=== PATIENT | male | born 2000 | race Caucasian/White ===

== ENCOUNTER 2022-10-14 16:22 | Emergency (ER) | payer OTHER, SELFPAY ==
[2022-10-14 16:25] VITALS: BP 96/61; PULSE 75; RESP 16; TEMP 37.3; O2SAT 98; BMI 19.1
--- NOTE | 2022-10-14 16:43 | ED_ITS ---
HPI - Animal Bite General Chief Complaint: Animal Bite Stated Complaint: bit by cat Time Seen by Provider: 10/14/22 16:24 History of Present Illness HPI narrative: This 22-year-old male was visiting the country of [place] and was bit by a cat 2 and half weeks ago. He states that it was a barn CT and the vaccination status is unknown. He was bit in the finger and was not sure that he completely had puncture through the whole layer of skin. He did take an antibiotic for another reason afterwards and states that he does not have any residual affects of the cat bite on his hand. 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 He states that he feels normal in is otherwise in good health. Related Data Home Medications Medication Instructions Recorded Confirmed desvenlafaxine 50 mg 50 mg PO DAILY 10/14/22 10/14/22 tablet,extended release 24 hr doxycycline 10/14/22 Allergies Allergy/AdvReac Type Severity Reaction Status Date / Time No Known Drug Allergies Allergy Verified 10/14/22 16:30 Review of Systems Status of ROS: Reports: 10 or more systems reviewed and unremarkable except as noted in History and below Narrative: Constitutional: No fevers, no weight gain or loss. Eyes: No discharge. No vision changes. HENT: No congestion, no sore throat, no ear pain. Cardiovascular: No chest pain, no palpitations. Respiratory: No shortness of breath, no wheezes, no cough. Gastrointestinal: No abdominal pain, no vomiting, no diarrhea. Genitourinary: No dysuria, no hematuria. Musculoskeletal: Normal range of motion. Skin: No rashes, no pruritis. Neurological: No dizziness, weakness, sensory change, speech change. Endo/Heme/Allergies: No bruising or bleeding. No polydipsia. Pysch: no suicidality, no anxiety, no insomnia. All other systems reviewed and are negative. PFSH PFSH Social History Smoking Status: Never smoker How often do you have a drink containing alcohol: 2-4 times a month AUDIT-C Alcohol total score: 2 Non-prescribed substance use: denies use Exam Narrative: Exam Narrative: Constitutional: Well-developed, well-nourished, no acute distress. HEENT: Normocephalic, atraumatic. Neck: Normal range of motion. Nontender. Supple. Heart: Regular. No murmurs. Normal rate. Intact distal pulses. Lungs: Clear to auscultation. No chest discomfort. No wheezes, rhonchi, or rales. Abdomen: Normal bowel sounds. Nontender. No rebound tenderness. Genitalia: Deferred. Back: No midline tenderness. Normal range of motion. Extremities: Normal range of motion. No injury. Skin: Intact. No rash. Warm. No erythema or pallor. Neurologic: No altered sensation. No weakness. Alert and oriented. Psychiatric: No suicidality. No anxiety or depression. No insomnia. Nursing notes and vitals signs are reviewed. Const: Vital Signs, click to edit/add: Vital Signs - 24 hr 10/14/22 16:25 Temperature 99.2 F Pulse Rate [Left P ulse Oximeter] 75 Respiratory Rate 16 Blood Pressure [Ri ght Upper Arm] 96/61 Pulse Oximetry 98 Oxygen Delivery Me thod Room Air Course Vital Signs Vital signs: Initial Vital Signs Temperature 99.2 F 10/14/22 16:25 Temperature Source Temporal Artery Scan 10/14/22 16:25 Pulse Rate 75 10/14/22 16:25 Respiratory Rate 16 10/14/22 16:25 Blood Pressure 96/61 10/14/22 16:25 Blood Pressure Mean 72 10/14/22 16:25 Blood Pressure Position Sitting 10/14/22 16:25 Pulse Oximetry 98 10/14/22 16:25 Oxygen Delivery Method Room Air 10/14/22 16:25 Vital Signs Temperature 99.2 F 10/14/22 16:25 Pulse Rate 75 10/14/22 16:25 Respiratory Rate 16 10/14/22 16:25 Blood Pressure 96/61 10/14/22 16:25 Pulse Oximetry 98 10/14/22 16:25 Oxygen Delivery Method Room Air 10/14/22 16:25 Temperature 99.2 F 10/14/22 16:25 Pulse Rate 75 10/14/22 16:25 Respiratory Rate 16 10/14/22 16:25 Blood Pressure 96/61 10/14/22 16:25 Pulse Oximetry 98 10/14/22 16:25 Oxygen Delivery Method Room Air 10/14/22 16:25 MDM - Animal Bite MDM Narrative Medical decision making narrative: This patient was bit by cat 2 and half weeks ago. Guidelines state that rabies can have a very long incubation time, even years. An order is placed for the the rabies series of vaccines. The patient received immunoglobulin and 1st vaccine today. He is instructed to return on day 3, 7, and 14 to complete the series. Discharge Plan Discharge Clinical Impression: Cat bite Patient Disposition: Home, Self-Care Condition: Stable Additional Instructions: To complete the series of rabies vaccinations, return on day 3 (October 17), day 7 (October 21), and day 14 (October 28). Follow up with MD otherwise as needed or return if worsening. Prescriptions: No Action desvenlafaxine 50 mg tablet extended release 24 hr 50 mg PO DAILY doxycycline Stand Alone Forms: [employer] Info Instructions
[2022-10-14] MEDS: RABIES IMMUNE GLOBULIN 150 UNIT/ML INJ 1320 UNIT INFILTRATI (17:21)
--- NOTE | 2022-10-14 17:29 | ED.NURSE ---
Administered vaccine per order and informed patient of follow up visit instructions. 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 RIG administered in left deltoid and both thigh muscles given the large volume to be administered. Patient declined waiting after administration and left immediately after, feeling well.
== END 2022-10-14 17:31 | disposition home or self-care (01) ==
LOC: ED 17:14
PROVIDERS: Emergency Provider Emergency Medicine Emergency Medical Services
DX: S61.259A Open bite of unspecified finger without damage to nail, initial encounter (principal); W55.01XA Bitten by cat, initial encounter; Z20.3 Contact with and (suspected) exposure to rabies; Z23 Encounter for immunization
CPT/HCPCS: 90377; 90471; 90675; 99283; 99284

== ENCOUNTER 2023-06-04 10:38 | Emergency (ER) | payer OTHER, SELFPAY ==
[2023-06-04 10:43] VITALS: BP 106/66; PULSE 93; RESP 18; TEMP 36.6; O2SAT 99
--- NOTE | 2023-06-04 11:16 | XR_ITS ---
Patient: DELMY CRANDALL Facility:?[facility] Patient ID:?[id number] Site Patient ID:?[id number]. Site :?[id number] Study:?XRay-Chest PA & LATERAL-06/04/2023 11:28:23 AM Ordering Physician:CHYNA Final Report: INDICATION: CHEST PAIN & SHORTNESS OF BREATH TECHNIQUE: Chest 2 views COMPARISON: None FINDINGS: Cardiovascular and mediastinum: Heart size and vasculature are normal in caliber and appearance. Lungs and pleural spaces: Lungs are clear. No sign of infiltrate or mass. No sign of pleural effusion. No pneumothorax. Bones and soft tissues: No significant findings. IMPRESSION: No acute findings. Dictated by Cody Jang MD @ 06/04/2023 11:53:17 AM Signed by:?Cody Jang MD @06/04/2023 11:53:17 AM (Electronic Signature)
--- NOTE | 2023-06-04 11:27 | ED.GENADULT ---
HPI - General Adult General Date Seen: 06/04/23 Chief complaint: Cough Stated complaint: Cough, chest pain Time Seen by Provider: 06/04/23 10:49 Source: patient Mode of arrival: ambulatory Limitations: no limitations History of Present Illness HPI narrative: Patient is a 23-year-old male with no pertinent medical issues presenting to the emergency department for chest pain and shortness of breath. He states for the past couple days he has been having congestion. He went to his school's wellness clinic yesterday and was prescribed an inhaler. He was told that at the symptoms persist with inhaler he should come to the emergency department. States he was initially worsening symptoms last night the continued today. States he uses inhaler and help with the symptoms for about 30 minutes then they would come back. Denies ever having symptoms like this before. Describes the chest pain as burning in nature. It does not radiate. Denies fevers, chills, weakness, headache, abdominal pain, diarrhea, constipation, lightheadedness, dizziness. Has no history of blood clots. Does not noticed any unilateral leg swelling, denies any recent trauma surgeries, hemoptysis, recent surgery or trauma. Related Data Home Medications Medication Instructions Recorded Confirmed desvenlafaxine 50 mg 50 mg PO DAILY 10/14/22 06/04/23 tablet,extended release 24 hr doxycycline 10/14/22 Allergies Allergy/AdvReac Type Severity Reaction Status Date / Time No Known Drug Allergies Allergy Verified 10/14/22 16:30 Review of Systems Status of ROS: Reports: 10 or more systems reviewed and unremarkable except as noted in History and below PFSH PFS Social History Smoking Status: Never smoker How often do you have a drink containing alcohol: 2-4 times a month AUDIT-C Alcohol total score: 2 Non-prescribed substance use: denies use Exam Narrative: Exam Narrative: Const: Well-nourished, Well-developed, in mild distress Eyes: PERRL, no conjunctival injection, and symmetrical lids HENT: Atraumatic external nose and ears. Moist mucous membranes. Neck: Symmetric, trachea midline, No thyromegaly. CVS: RRR, No murmurs or gallops. Peripheral pulses 2+ and equal in all extremities RESP: Unlabored respiratory effort. Clear to auscultation bilaterally. GI: Nontender/Nondistended, No rebound or guarding. MSK:Extremities w/o deformity, Normal Active ROM Skin: Warm, Dry. No rashes or lesions. Neuro: Normal Muscle tone, No focal neurological deficits. Psych: Awake, Alert, & Oriented x3. Appropriate mood and affect. Const: Vital Signs, click to edit/add: Vital Signs - 24 hr 06/04/23 10:43 Temperature 97.9 F Pulse Rate [Right Pulse Oximeter] 93 Respiratory Rate 18 Blood Pressure [Ri ght Upper Arm] 106/66 Pulse Oximetry 99 Oxygen Delivery Me thod Room Air Course Vital Signs Vital signs: Initial Vital Signs Temperature 97.9 F 06/04/23 10:43 Temperature Source Temporal Artery Scan 06/04/23 10:43 Pulse Rate 93 06/04/23 10:43 Respiratory Rate 18 06/04/23 10:43 Blood Pressure 106/66 06/04/23 10:43 Blood Pressure Mean 79 06/04/23 10:43 Blood Pressure Position Sitting 06/04/23 10:43 Pulse Oximetry 99 06/04/23 10:43 Oxygen Delivery Method Room Air 06/04/23 10:43 Vital Signs Temperature 97.9 F 06/04/23 10:43 Pulse Rate 93 06/04/23 10:43 Respiratory Rate 18 06/04/23 10:43 Blood Pressure 106/66 06/04/23 10:43 Pulse Oximetry 99 06/04/23 10:43 Oxygen Delivery Method Room Air 06/04/23 10:43 Temperature 97.9 F 06/04/23 10:43 Pulse Rate 93 06/04/23 10:43 Respiratory Rate 18 06/04/23 10:43 Blood Pressure 106/66 06/04/23 10:43 Pulse Oximetry 99 06/04/23 10:43 Oxygen Delivery Method Room Air 06/04/23 10:43 Medical Decision Making [facility] Narrative Medical decision making narrative: Patient is a 23-year-old male presenting for what sounds like viral symptoms. His bed him chest pain and shortness of breath that improved with his inhaler that he was prescribed yesterday. He is PERC negative and PE is very unlikely so D-dimer was not ordered. We ordered chest x-ray work for signs of pneumonia or pneumothorax. Also ordered EKG and a troponin. While ACS seems unlikely considering his age it is still a differential along with mild carditis. His vital signs otherwise stable at this time. Chest x-ray reviewed by myself and the radiologist shows no concerning abnormalities. EKG shows no concerning findings. CBC and BMP showed no concerning findings. His troponin was 0.01 which is within normal limit. Myocarditis seems unlikely at this time. Since the symptoms have been going on since last night with chest pain other not believe is necessary to repeat the troponin. Symptoms are most likely secondary to his positive RSV. Patient be discharged home at this time. He is agreeable to this plan Lab Data Labs: Lab Results 06/04/23 06/04/23 Range/Units 11:16 11:35 WBC 9.60 (4.50-11.00) K/uL RBC 5.09 (4.30-5.90) m/uL Hgb 14.0 (13.5-17.5) gm/dL Hct 42.9 (37.0-53.0) % MCV 84 (80-100) fL MCH 28 (26-34) pg MCHC 33 (32-36) gm/dL RDW Coeff of Garcia 13.0 (11.5-15.5) % Plt Count 186 (140-440) K/uL Neut % (Auto) 75.6 H (42.0-72.0) % Lymph % (Auto) 9.5 L (20-44) % [place] % (Auto) 11.0 (0.0-11.0) % Eos % (Auto) 3.0 (0.0-7.0) % Baso % (Auto) 0.8 (0.0-3.0) % Neut # (Auto) 7.30 H (1.7-7.0) K/uL Lymph # (Auto) 0.90 (0.90-2.90) K/uL [place] # (Auto) 1.10 H (0.00-0.90) K/UL Eos # (Auto) 0.29 (0.00-0.50) K/uL Baso # (Auto) 0.08 (0.00-0.30) K/uL Abs Immat Gran (auto) 0.01 (0.00-0.30) K/uL Imm/Tot Granulo (auto) 0.1 % Sodium 137 (135-149) mmol/L Potassium 4.1 (3.6-5.1) mmol/L Chloride 101 (96-114) mmol/L Carbon Dioxide 29 (20-32) mmol/L Anion Gap 7 (7-15) mEq/L BUN 17 (5-24) mg/dL Creatinine 0.6 (0.5-1.5) mg/dL Estimated GFR 140 ml/min Glucose 106 (60-115) mg/dL Calcium 9.6 (8.4-10.6) mg/dL SARS-CoV-2 (PCR) Negative SARS-CoV-2 (Negative) Influenza Type A (PCR) Negative PCR FLU A (Negative) Influenza Type B (PCR) Negative PCR FLU B (Negative) RSV (PCR) POSITIVE PCR RSV A (Negative) Imaging Data Chest x-ray: Radiologist's impression: No acute findings. Dictated by Cody Jang MD @ 06/04/2023 11:53:17 AM ECG Data Attestation: I personally reviewed and interpreted this ECG as follows: Prior ECG tracings: not available for review Interpretation: Normal sinus rhythm with rate of 95 beats per minute, normal intervals, normal axis, no ST or T-wave abnormalities. There is some slight elevations in V3 and V4 but is likely benign early repolarization considering his age Discharge Plan Discharge Clinical Impression: Respiratory syncytial virus (RSV) Patient Disposition: Home, Self-Care Condition: Stable Instructions: RSV (Respiratory Syncytial Virus) (ED) Additional Instructions: Take Tylenol and ibuprofen for symptom management. Stay well-hydrated. You can continue to use the previously prescribed inhalers. Return to emergency department for new or worsening symptoms. Prescriptions: No Action desvenlafaxine 50 mg tablet extended release 24 hr 50 mg PO DAILY doxycycline Follow Up/Referrals: Provider,Not a Local [Primary Care Provider] - Stand Alone Forms: [employer] Info Instructions
[2023-06-04 11:43] LABS: Basophils Absolute Auto 0.08 K/uL (0.00-0.30); Basophils Percent Auto 0.8 % (0.0-3.0); Eosinophils Absolute Auto 0.29 K/uL (0.00-0.50); Hematocrit 42.9 % (37.0-53.0); Immature Granulocytes Abs Auto 0.01 K/uL (0.00-0.30); Immature Granulocytes Pct Auto 0.1 %; Lymphocytes Percent Auto 9.5 % (20-44); Mean Corpuscular HGB Conc 33 gm/dL (32-36); Mean Corpuscular Hemoglobin 28 pg (26-34); Mean Corpuscular Volume 84 fL (80-100); Neutrophils Percent Auto 75.6 % (42.0-72.0); Platelet Count* 186 K/uL (140-440); Red Blood Count 5.09 m/uL (4.30-5.90)
[2023-06-04 11:45] LABS: Slide Review Reflex No
[2023-06-04 11:55] LABS: Chloride* 101 mmol/L (96-114); Potassium* 4.1 mmol/L (3.6-5.1); Sodium* 137 mmol/L (135-149)
[2023-06-04 11:58] LABS: Anion Gap 7 mEq/L (7-15); Carbon Dioxide* 29 mmol/L (20-32); Creatinine* 0.6 mg/dL (0.5-1.5); Estimated Glomerular Filt Rate 140 ml/min
[2023-06-04 11:59] LABS: Blood Urea Nitrogen* 17 mg/dL (5-24); Calcium* 9.6 mg/dL (8.4-10.6); Glucose* 106 mg/dL (60-115)
[2023-06-04 12:28] LABS: PCR FLU A Negative PCR FLU A (Negative); PCR FLU B Negative PCR FLU B (Negative); PCR RSV POSITIVE PCR RSV (Negative); SARS PCR* Negative SARS-CoV-2 (Negative)
[2023-06-30 08:39] LABS: Troponin, Point-of-Care* 0.01 ng/ml (0.01-0.04)
== END 2023-06-04 12:37 | disposition home or self-care (01) ==
PROVIDERS: Emergency Provider Student in an Organized Health Care Education/Training Program
DX: R05.9 Cough, unspecified (principal); B97.4 Respiratory syncytial virus as the cause of diseases classified elsewhere
CPT/HCPCS: 36415; 71046; 80048; 84484; 85025; 87631; 93005; 99283; 99284

== ENCOUNTER 2024-01-08 23:49 | Outpatient (CLI) | payer OTHER, SELFPAY ==
--- OUTSIDE RECORDS SUMMARY | 2024-01-25 15:33 | XMS_ITS | Clinical Summary ---
Author Organization [facility] Address [place], [place] [address] Care Team Providers Care Bottom Scrubber Name Role Phone Pcp, No Primary Care Provider Unavailabl e Allergies Active Allergy Reactions Criticality Noted Date Comments Gluten Other - Describe In Comment Field 06/24/2022 celiac disease Nut - Unspecified Anaphylaxis High 03/16/2018 All nuts Peanut Anaphylaxis High 12/11/2021 Medications Medication Sig Dispensed Refills Start Date End Date Status desvenlafaxine succinate (PRISTIQ) 50 mg Extended-Release tablet Take 50 mg by mouth once daily. 06/09/2022 Active triamcinolone (ARISTOCORT; KENALOG) 0.1 % creamIndications:M edication refill Apply topically to affected area(s) three times daily. As needed for eczema 45 g 10/01/2022 Active EPINEPHrine (EPIPEN) 0.3 mg/0.3 mL auto-injectorIndic ations:Allergic reaction, sequela Inject 0.3 mg (1 Pen) intramuscular each time if needed for Allergic Reaction. 2 Each 08/24/2023 Active hyoscyamine sublingual (LEVSIN SL) 0.125 mg sublIndications:Ab dominal cramping Place 2 Tablets (0.25 mg) under the tongue every 4 hours if needed (stomach cramping). 30 Tablet 1 08/24/2023 Active Active Problems No known active problems Immunizations Name Administration Dates Next Due DTaP 09/22/2006, 3,2001,05/14,2001 HPV 9 (Gardasil 9) 05/14/2020,10/02/2019, 019 Hepatitis A (Peds) 10/21/2012,10/19/2008 Hepatitis B (Peds) 2001,2001, 001 Hib Conjugate, Unspecified 04/27/2002,,2001,03/22 Inactivated Polio Vaccine 04/28/2018 Influenza Virus, Unspecified 01/02/2021,03/15/20 19 Influenza, Injectable, Mdck, Quadrivalent, W/preservative 01/02/2021 Influenza,CCIIV4 PRESERV FREE 01/02/2022 MMR 04/28/2018,01/15/2006,01/20/2002 Meningococcal Mcv4, Unspecif ied Formulation 11/25/2015 Meningococcal Vaccine 11/25/2015 Pneumococcal, Unspecified 04/22/2002,04/2001,2001,03/22 Polio Virus, Unspecified 07/19/2002,09/2001,2001,03/22 Rabavert 10/17/2022,10/14/2022 Tdap 06/24/2022,10/21/2012 Typhoid (injectable) 02/03/2022,05/17/2019,04/28 Varicella Vaccine 01/15/2006,01/10/2002 Social History Tobacco Use Types Packs/Day Years Used Date Smoking Tobacco: Never Smokeless Tobacco: Never Tobacco Cessation:Counseling Given: Yes Alcohol Use Standard Drinks/Week Comments Yes 0 (1 standard drink = 0.6 oz pur e alcohol) Social Connections Answer Date Recorded Frequency of Communication with Friends and Fami ly Not on file 10/04/2023 Alcohol Use Answer Date Recorded How often do you have a drink containing alcohol ? 3 08/24/2023 How many drinks containing a lcohol do you have on a typical day when you are drinking? 0 08/24/2023 How often do you have five or more drinks on one occasion? 0 08/24/2023 Financial Resource Strain Answer Date R ecorded Difficulty of Paying Living Expenses 3 10/01/2022 Difficulty of Paying Living Expenses Not on file 10/01/2022 Food Insecurity Answer Date Recorded Worried About Running Out of Food in the Last Ye ar 1 10/01/2022 Transportation Needs Answer Date Record ed Lack of Transportation (Medical) 1 10/01/2022 Housing Stability Answer Date Recorded Unable to Pay for Housing in the Last Year 1 10/01/2022 Sex and Gender Information Value Date Recorded Sex Assigned at Not on file Gender Identity Not on file Sexual Orientation Not on file Obstetrics History Last Filed Vital Signs Vital Sign Reading Time Taken Comments Blood Pressure 107/66 08/24/2023 7:59 AM CDT Pulse 60 08/24/2023 7:59 AM CDT Temperature 36.8 ??C (98.3 ??F) 10/01/2022 11:50 AM C DT Respiratory Rate 16 10/01/2022 11:50 AM CDT Oxygen Saturation 98% 08/24/2023 7:59 AM CDT Inhaled Oxygen Concentration - - Weight 68 kg (150 lb) 10/01/2022 11:50 AM CDT Height 185.4 cm (6' 1) 10/01/2022 11:50 AM CDT Body Mass Index 19.79 10/01/2022 11:50 AM CDT Plan of Treatment Health Maintenance Due Date Last Done Comments Depression screening for age 12+ 2013 HIV for age 15-65 01/15/2016 Hepatitis C screening for age 18-79 2019 BMI (ht and wt on same day) for age 18+ 10/02/2023 10/01/2022 COVID-19 vaccine series ( season) 2023 01/02/2022, 03/17/2021, 07/22/2020, Additional history exists Influenza for age 9-49 12/12/2023 , 01/02/2021, 01/02/2021, Additional history exists Tetanus booster 06/24/2032 06/24/2022, 10/21/2012 Pneumococcal series for age 6-64 Aged Out 04/22/2002, 01/10/2002, 2001, Additional history exists No longer eligible based on patient's age to complete this topic HPV series for age 9-26 Completed 05/14/19, 10/02/2019, 03/15/2019 Tdap Completed 06/24/2022, 10/21/2012 Care Teams Bottom Scrubber Relationship Specialty Start Date End Date Pcp, No . PCP - General 12/11/21
== END 2024-01-08 23:50 | disposition home or self-care (01) ==
LOC: AMB 01-25 15:31
PROVIDERS: Visit Provider Family Medicine
DX: F10.129 Alcohol abuse with intoxication, unspecified (principal)
CPT/HCPCS: A0998